=== PATIENT | female | born 1995 | race Caucasian/White ===

== ENCOUNTER 2020-11-12 18:14 | Emergency (ER) | payer OTHER, SELFPAY ==
[2020-11-12] MEDS ORDERED: traMADol HCl 50 MG TAB ONE (19:38)
[2020-11-12 19:49] LABS: Pregnancy Test - Urine (BHCG) Negative (Negative); Pregu Control Background? CLEAR/WHITE (CLR/WHITE); Pregu Control Bar Appear? YES (CONTROL BAR); Specific Gravity 1.017 (1.002-1.036)
== END 2020-11-12 21:05 | disposition home or self-care (01) ==
LOC: NAV ERS 18:14
DX: S16.1XXA Strain of muscle, fascia and tendon at neck level, initial encounter (principal); S63.502A Unspecified sprain of left wrist, initial encounter; S40.011A Contusion of right shoulder, initial encounter; M54.5 Low back pain; R51.9 Headache, unspecified; J45.909 Unspecified asthma, uncomplicated; V49.9XXA Car occupant (driver) (passenger) injured in unspecified traffic accident, initial encounter
CPT/HCPCS: 70450; 72100; 72125; 81025